=== PATIENT | male | born 1995 | race Caucasian/White ===

== ENCOUNTER 2019-09-10 12:26 | Emergency (ER) | payer SELFPAY ==
[2019-09-10 12:30] VITALS: BP 142/72; PULSE 89; RESP 18; TEMP 36.6; O2SAT 99; BMI 26.6
[2019-09-10 12:39] VITALS: BP 142/72; PULSE 89; RESP 18; TEMP 36.6; O2SAT 99
== END 2019-09-10 12:42 | disposition home or self-care (01) ==
LOC: UTC 12:41
PROVIDERS: Emergency Provider Nurse Practitioner
DX: S61.211D Laceration without foreign body of left index finger without damage to nail, subsequent encounter (principal)

== ENCOUNTER 2019-12-05 02:19 | Emergency (ER) | payer SELFPAY ==
[2019-12-05 02:19] VITALS: BP 126/90; BP 153/87; PULSE 100; PULSE 66; RESP 16; RESP 21; TEMP 36.7; O2SAT 100; O2SAT 99; BMI 23.1
--- NOTE | 2019-12-05 02:21 | ECG_ITS ---
APPROVED REPORT Exam: Resting ECG HR:90 bpm ECG Measurements Heart Rate 90 AXES GA 154 P 96 QRSd 100 QRS 97 QT 362 T 57 QTc 442 <Conclusion> Suspect arm lead reversal, interpretation assumes no reversal Normal sinus rhythm Right atrial enlargement Rightward axis Pulmonary disease pattern Abnormal ECG Electronically signed by : Trevon Mancilla, 12/05/2019 15:31:48
--- NOTE | 2019-12-05 02:24 | XR_ITS ---
PROCEDURE: XR CHEST 2V CLINICAL HISTORY: chest pain COMPARISON: CXR CHEST(2 VIEWS-NOT PORTABLE) from 10/22/2014 FINDINGS: The cardiomediastinal silhouette and pulmonary vascularity are within normal limits. The lungs are clear without infiltrates, suspicious nodules, or pleural effusions. Scattered calcified granulomas are present consistent with old granulomatous disease. No acute bony findings. IMPRESSION: No acute findings. Dictated by: Rad Santillan MD 12/05/2019 07:50 Electronically signed by Rad Santillan MD in [place] 12/05/2019 07:50
[2019-12-05 02:33] LABS: Microscopic, Urine URINE MICROSCOPIC (MICROSCOPIC)
[2019-12-05 02:34] LABS: Chloride 102 mmol/L (98-107); Potassium 3.3 mmoL/L (3.5-5.1); Sodium 139 mmol/L (136-145)
[2019-12-05 02:35] LABS: Appearance,Urine CLEAR (Clear); Bilirubin,Urine Negative (Negative); Blood, Urine Negative (Negative); Color,Urine YELLOW (Yellow); Glucose,Urine (UA) Negative (Negative); Ketones,Urine Negative (Negative); Leukocyte Esterase,Urine Negative (Negative); Nitrate,Urine Negative (Negative); Protein,Urine Negative (Negative); Urobilinogen,Urine 0.2 EU/dl (0.2)
[2019-12-05 02:37] LABS: Anion Gap 15.3 mEq/L (5-15); Basophils % 0.4 % (0.1-2.0); Blood Urea Nitrogen 18 mg/dl (9-20); Calcium 9.2 mg/dl (8.4-10.2); Carbon Dioxide 25 mmol/L (22.0-30.0); Creatinine Clearance Estimated 92 mL/min (50-200); Eosinophils # 0.2 K/mm3 (0.0-0.4); Eosinophils % 1.9 % (0.1-12.0); Estimated Glomerular Filt Rate 74 ml/min (>60); GFR (African American) 89 ML/MIN (>60); Glucose 99 mg/dl (74-100); Hematocrit 44.3 % (42.0-52.0); Hemoglobin 15.4 g/dL (14.1-18.0); Lymphocytes # 3.4 K/mm3 (0.7-4.5); Lymphocytes % 37.6 % (10-50); Mean Corpuscular HGB Conc 34.7 g/dL (31.8-35.4); Mean Corpuscular Hemoglobin 30.6 pg (27.0-31.2); Mean Corpuscular Volume 88.1 fl (80-94); Mean Platelet Volume 9.5 fl (7.4-10.4); Monocytes # 0.6 K/mm3 (0.1-1.0); Monocytes % 6.7 % (1.7-9.3); Neutrophils # 4.8 K/mm3 (1.8-7.8); Neutrophils % 53.3 % (37.0-80.0); Platelet Count 223 K/mm3 (142-424); Red Blood Count 5.04 M/mm3 (4.60-6.20); Red Cell Distribution Width 13.3 % (11.5-17.5)
[2019-12-05 02:44] LABS: Bacteria,Urine Trace /lpf; WBC,Urine Occasional #/hpf (0-3)
[2019-12-05 02:47] LABS: Amphetamine/Metha Screen,Urine Negative ng/ml (<1000); Barbiturates Screen,Urine Negative ng/ml (<200)
[2019-12-05 02:48] LABS: Benzodiazepines Screen,Urine Negative ng/ml (<200)
[2019-12-05 02:49] LABS: Cannabinoid Screen,Urine Negative ng/ml (<50); Cocaine Screen,Urine Negative ng/ml (<300)
[2019-12-05 02:50] LABS: Methadone Screen,Urine Negative ng/ml (<300)
[2019-12-05 02:51] LABS: Opiate Screen,Urine Negative ng/ml (<300); Phencyclidine Screen,Urine Negative ng/ml (<25)
[2019-12-05 02:51] LABS: Troponin I < 0.01 ng/ml (0.00-0.034)
[2019-12-05 03:13] LABS: C-Reactive Protein 0.3 mg/L (0-4)
[2019-12-05 03:19] VITALS: BP 110/68; PULSE 57; RESP 16; O2SAT 99
[2019-12-05 03:24] LABS: Coronavirus 19 IgG Antibody Negative (Negative); Coronavirus 19 IgM Antibody Negative (Negative); Erythrocyte Sedimentation Rate 10 mm/hr (0-15)
[2019-12-05 03:30] VITALS: BP 110/68; PULSE 64; RESP 17; O2SAT 97
--- NOTE | 2019-12-05 03:31 | PC.NURSE ---
this nurse reassessed pt chest pain. pt deneis any pain at this time.
--- NOTE | 2019-12-05 03:39 | HMH.EDCP ---
ED Disposition Clinical Impression: Atypical chest pain Disposition: Home, Self-Care Condition on Discharge: Good Instructions: DI for Atypical Chest Pain Additional Instructions: see pcp and card for ana cristinaxiomara dulce Referrals: PCP,No [Primary Care Provider] - - Critical Care Critical Care Time: No Attestation: On 12/05/19, the high probability of a clinically significant, sudden or life threatening deterioration of the following system(s) required my full and direct attention, intervention and personal management. The time I documented below is in addition to time spent performing reported procedures but includes the following listed in this critical care notation. Medical Decision Making - Medical Records Medical records reviewed: Yes: I reviewed the patient's medical records. - Kavon Inquiry Pt receiving controlled substance: No Vital Signs: 12/05/19 02:19 12/05/19 03:19 Temperature 98.1 F Temperature Source Oral Pulse Rate [Right Brachial] 66 57 L Respiratory Rate 16 16 Blood Pressure [Right Arm] 126/90 110/68 Blood Pressure Mean [Right Arm] 102 82 Blood Pressure Source [Right Arm] Automatic Cuff Automatic Cuff Blood Pressure Position [Right Arm] Sitting Sitting 02 Sat by Pulse Oximetry 99 99 Oxygen Delivery Method Room Air Room Air - Lab Data Lab results reviewed: Yes: I reviewed the patient's lab results. Lab Results 12/05/19 02:20: WBC 9.0, RBC 5.04, Hgb 15.4, Hct 44.3, MCV 88.1, MCH 30.6, MCHC 34.7, RDW 13.3, Plt Count 223, MPV 9.5, Neut % (Auto) 53.3, Lymph % (Auto) 37.6, [place] % (Auto) 6.7, Eos % (Auto) 1.9, Baso % (Auto) 0.4, Neut # (Auto) 4.8, Lymph # (Auto) 3.4, [place] # (Auto) 0.6, Eos # (Auto) 0.2, Baso # (Auto) 0.0 12/05/19 02:20: Sodium 139, Potassium 3.3 L, Chloride 102, Carbon Dioxide 25, Anion Gap 15.3 H, BUN 18, Creatinine 1.20, Estimated Creat Clear 92, Estimated GFR 74, Est GFR ( Amer) 89, Glucose 99, Calcium 9.2, Troponin I < 0.01 12/05/19 02:20: ESR 10 12/05/19 02:20: C-Reactive Protein 0.3 12/05/19 02:20: SARS-CoV-2 IgG Ab (Rapid) Negative, SARS-CoV-2 IgM Ab (Rapid) Negative 12/05/19 02:25: Urine Color Yellow, Urine Appearance Clear, Urine pH 7.0, Ur Specific [place] 1.020, Urine Protein Negative, Urine Glucose (UA) Negative, Urine Ketones Negative, Urine Blood Negative, Urine Nitrate Negative, Urine Bilirubin Negative, Urine Urobilinogen 0.2, Ur Leukocyte Esterase Negative, Urine WBC Occasional, Urine Bacteria Trace 12/05/19 02:25: Urine Opiates Screen Negative, Urine Methadone Screen Negative, Ur Barbituates Screen Negative, Ur Phencyclidine Scrn Negative, Ur Amphetamines Screen Negative, U Benzodiazepines Scrn Negative, Urine Cocaine Screen Negative, U Marijuana (THC) Screen Negative Result diagrams: 12/05/19 02:20 12/05/19 02:20 Orders (Tests/Meds): ED MEDICATIONS Generic Name Dose Route Start Last Admin Trade Name Freq PRN Reason Stop Dose Admin Sodium Chloride 1,000 mls @ 999 mls/hr 12/05/19 03:30 12/05/19 03:31 Sod Chlor 0.9% 1000ml Bag IV 12/05/19 04:30 999 mls/hr .Q1H1M KAYLEE Administration ORDERS Category Date Time Status XR chest 2V Stat Exams 12/05/19 02:24 Taken Troponin I Q3H Lab 12/05/19 05:30 Ordered Troponin I Q3H Lab 12/05/19 08:30 Ordered - ECG Data Tracing #1 Normal Sinus Rhythm: Yes Ischemic changes: non-specific ST-T wave changes Chest Pain HPI - General Chief Complaint: Chest Pain Stated Complaint: chest pain Time Seen by Provider: 12/05/19 02:35 Mode of Arrival: Family Vehicle Source of Information: Patient, Medical Record Limitations: No Limitations Description of Symptoms (Recalled from ER Triage Doc. by RN): chest discomfort for the past 2 days; pt is alert, oriented, no previous history, very anxious, bilateral hands tingly, states he woke up from being asleep for approx 1 hour; - History of Present Illness HPI narrative: sharp lower ant chest pain assoc with inc hr over the last few days with no f
[2019-12-05 04:00] VITALS: BP 119/73; PULSE 60; RESP 18; O2SAT 97
[2019-12-05 04:07] VITALS: BP 119/73; PULSE 61; RESP 15; TEMP 36.6; O2SAT 98
== END 2019-12-05 04:09 | disposition home or self-care (01) ==
PROVIDERS: Emergency Provider Emergency Medicine
DX: R07.89 Other chest pain (principal)
CPT/HCPCS: 71046; 80048; 80305; 81001; 84484; 85025; 85651; 86140; 86328; 93005; 96365; 99284

== ENCOUNTER 2019-12-20 00:15 | Emergency (ER) | payer SELFPAY ==
--- NOTE | 2019-12-20 00:15 | ECG_ITS ---
APPROVED REPORT Exam: Resting ECG HR:63 bpm ECG Measurements Heart Rate 63 AXES MT 150 P 72 QRSd 94 QRS 93 QT 394 T 73 QTc 403 <Conclusion> Sinus rhythm with marked sinus arrhythmia Rightward axis Borderline ECG Electronically signed by : Kamran Shine, 12/24/2019 21:22:07
[2019-12-20 00:20] VITALS: BP 129/81; PULSE 64; RESP 16; TEMP 37; O2SAT 98; BMI 22.6
--- NOTE | 2019-12-20 00:26 | HMH.EDGENADL ---
ED Disposition Clinical Impression: Atypical chest pain, Palpitations Disposition: Home, Self-Care Condition on Discharge: Good Instructions: DI for Atypical Chest Pain, DI for Palpitations Additional Instructions: Follow-up in the office with Dr. Jamil. Call for appointment. Additional instructions for CHEST PAIN: See your physician as soon as possible for further evaluation. Return immediately if worsening chest pain, vomiting, shortness of breath, fever, coughing of blood. Referrals: Provider,MD Xander [Primary Care Provider] - Ran Jamil MD [Staff Physician] - - Critical Care Critical Care Time: No Attestation: On , the high probability of a clinically significant, sudden or life threatening deterioration of the following system(s) required my full and direct attention, intervention and personal management. The time I documented below is in addition to time spent performing reported procedures but includes the following listed in this critical care notation. Medical Decision Making - Kavon Inquiry Pt receiving controlled substance: No Vital Signs: 12/20/19 00:20 12/20/19 00:28 12/20/19 00:59 Temperature 98.6 F Temperature Source Oral Pulse Rate [Left Radial] 64 65 66 Respiratory Rate 16 18 18 Blood Pressure [Right Arm] 129/81 124/65 134/64 Blood Pressure Mean [Right Arm] 97 84 87 Blood Pressure Source [Right Arm] Automatic Cuff Blood Pressure Position [Right Arm] Sitting 02 Sat by Pulse Oximetry 98 97 96 Oxygen Delivery Method Room Air Room Air - Lab Data Lab Results 12/20/19 00:30: WBC 5.5, RBC 4.77, Hgb 14.7, Hct 41.3 L, MCV 86.5, MCH 30.9, MCHC 35.7 H, RDW 13.0, Plt Count 230, MPV 9.2, Neut % (Auto) 46.1, Lymph % (Auto) 43.5, [place] % (Auto) 7.0, Eos % (Auto) 2.7, Baso % (Auto) 0.6, Neut # (Auto) 2.6, Lymph # (Auto) 2.4, [place] # (Auto) 0.4, Eos # (Auto) 0.2, Baso # (Auto) 0.0 12/20/19 00:30: Sodium 137, Potassium 3.3 L, Chloride 100, Carbon Dioxide 26, Anion Gap 14.3, BUN 26 H, Creatinine 1.10, Estimated Creat Clear 98, Estimated GFR 82, Est GFR ( Amer) 99, Glucose 90, Calcium 9.5, Troponin I < 0.01 Result diagrams: 12/20/19 00:30 12/20/19 00:30 Orders (Tests/Meds): ORDERS Category Date Time Status XR chest 2V Stat Exams 12/20/19 00:27 Taken Thyroid Panel Stat Lab 12/20/19 00:30 Received Troponin I Q3H Lab 12/20/19 03:30 Ordered Troponin I Q3H Lab 12/20/19 06:30 Ordered - ECG Data Tracing #1 EKG interpreted by Bruce Del Castillo MD: Rhythm: sinus with sinus arrhythmia Rate: 63 [place]: Rightward Ectopy: none Conduction: normal ST Segment Changes: none T Wave Changes: none Q Waves: none No evidence of acute ischemia or injury - Reevaluation(s) Time: 01:31 Reevaluation #1: Feeling good. No difficulty breathing. Feels like his heart is beating a little fast, but it is currently in the 70s. No arrhythmias. - VAN Score for Non-Stemi Age of Patient: <30 years old Heart Rate: 50-69 bpm Systolic Blood Pressure: 120-139 mmhg Serum Creatinine: 0.80-1.19 mg/dl CHF [place] Class: I-No CHF Other Risk Factors: None Non-Stemi Risk Score: 44 Medical Decision Narrative: PULMONARY EMBOLISM RULE-OUT CRITERIA: 1. Age > 49? No 2. Pulse greater than 99/min? No 3. Room air pulse ox <95%? No 4. Hemoptysis? No 5. On estrogen? No 6. Prior diagnosis of DVT or PE? No 7. Surgery or trauma requiring endotracheal intubation or hospitalization in past 4 wks? No 8. Unilateral leg swelling? No The patient is low risk and the PERC score is 0, indicating no further workup for pulmonary embolism is necessary. General Adult HPI - General Chief complaint: Chest Pain Stated complaint: chest pain Time Seen by Provider: 12/20/19 00:45 - History of Present Illness HPI narrative: Patient states that he was awakened from sleep by his heart racing and fluttering and a sharp chest pain. States that he is also been having difficulty b
--- NOTE | 2019-12-20 00:27 | XR_ITS ---
PROCEDURE: XR CHEST 2V CLINICAL HISTORY: chest pain COMPARISON: XR CHEST 2V from 12/05/2019 FINDINGS: Or or unremarkable cardiovascular structures. There is evidence of old granulomatous disease. No lobar consolidation or collapse. The lungs are clear without infiltrates, suspicious nodules, or pleural effusions. No acute bony abnormalities. IMPRESSION: No acute findings. Dictated by: Rad Santillan MD 12/20/2019 06:51 Electronically signed by Rad Santillan MD in [place] 12/20/2019 06:51
[2019-12-20 00:28] VITALS: BP 124/65; PULSE 65; RESP 18; O2SAT 97
[2019-12-20 00:42] LABS: Basophils % 0.6 % (0.1-2.0); Eosinophils # 0.2 K/mm3 (0.0-0.4); Eosinophils % 2.7 % (0.1-12.0); Hematocrit 41.3 % (42.0-52.0); Hemoglobin 14.7 g/dL (14.1-18.0); Lymphocytes # 2.4 K/mm3 (0.7-4.5); Lymphocytes % 43.5 % (10-50); Mean Corpuscular HGB Conc 35.7 g/dL (31.8-35.4); Mean Corpuscular Hemoglobin 30.9 pg (27.0-31.2); Mean Corpuscular Volume 86.5 fl (80-94); Mean Platelet Volume 9.2 fl (7.4-10.4); Monocytes # 0.4 K/mm3 (0.1-1.0); Neutrophils # 2.6 K/mm3 (1.8-7.8); Neutrophils % 46.1 % (37.0-80.0); Platelet Count 230 K/mm3 (142-424); Red Blood Count 4.77 M/mm3 (4.60-6.20); White Blood Count 5.5 K/mm3 (4.8-10.8)
[2019-12-20 00:47] LABS: Anion Gap 14.3 mEq/L (5-15); Blood Urea Nitrogen 26 mg/dl (9-20); Calcium 9.5 mg/dl (8.4-10.2); Carbon Dioxide 26 mmol/L (22.0-30.0); Chloride 100 mmol/L (98-107); Creatinine Clearance Estimated 98 mL/min (50-200); Estimated Glomerular Filt Rate 82 ml/min (>60); GFR (African American) 99 ML/MIN (>60); Glucose 90 mg/dl (74-100); Potassium 3.3 mmoL/L (3.5-5.1); Sodium 137 mmol/L (136-145)
[2019-12-20 00:59] VITALS: BP 134/64; PULSE 66; RESP 18; O2SAT 96
--- NOTE | 2019-12-20 01:01 | PC.NURSE ---
respiratory contacted to put pt on the list for a 48 hours holter monitor
[2019-12-20 01:03] LABS: Troponin I < 0.01 ng/ml (0.00-0.034)
[2019-12-20 01:20] VITALS: BP 128/58; PULSE 66; RESP 16; O2SAT 99
[2019-12-20 01:27] LABS: Free Thyroxine Index 2.8 ug/dL (5.93-13.13); T4 (Thyroxine) 8.1 ug/dl (5.53-11.0); Triiodothryronine (T3) Uptake 35 % (23.5-40.5)
[2019-12-20 01:41] VITALS: BP 114/64; PULSE 60; RESP 17; O2SAT 97
[2019-12-20 01:41] LABS: Thyroid Stimulating Hormone 2.74 uIU/mL (0.465-4.68)
[2019-12-20 02:09] VITALS: BP 118/68; PULSE 57; RESP 12; TEMP 37; O2SAT 97
== END 2019-12-20 02:11 | disposition home or self-care (01) ==
PROVIDERS: Emergency Provider Emergency Medicine
DX: R07.89 Other chest pain (principal); R00.2 Palpitations
CPT/HCPCS: 71046; 80048; 84436; 84443; 84479; 84484; 85025; 93005; 99284

== ENCOUNTER → 2019-12-22 16:15 | Outpatient (CLI) | payer SELFPAY | PROVIDERS: PCP Internal Medicine Adolescent Medicine; Visit Provider Internal Medicine Adolescent Medicine | DX: R06.02 Shortness of breath (principal); R07.9 Chest pain, unspecified; R00.2 Palpitations | CPT/HCPCS: 93225; 93226 ==

== ENCOUNTER → 2020-01-08 12:09 | Outpatient (CLI) | payer MEDICAID, SELFPAY ==
[2020-01-08 12:40] LABS: Basophils % 0.6 % (0.1-2.0); Eosinophils # 0.1 K/mm3 (0.0-0.4); Eosinophils % 2.2 % (0.1-12.0); Hematocrit 44.7 % (42.0-52.0); Hemoglobin 15.4 g/dL (14.1-18.0); Lymphocytes # 1.5 K/mm3 (0.7-4.5); Lymphocytes % 30.1 % (10-50); Mean Corpuscular HGB Conc 34.5 g/dL (31.8-35.4); Mean Corpuscular Hemoglobin 30.5 pg (27.0-31.2); Mean Corpuscular Volume 88.3 fl (80-94); Mean Platelet Volume 9.1 fl (7.4-10.4); Monocytes # 0.3 K/mm3 (0.1-1.0); Monocytes % 5.1 % (1.7-9.3); Platelet Count 220 K/mm3 (142-424); Red Blood Count 5.07 M/mm3 (4.60-6.20); Red Cell Distribution Width 12.7 % (11.5-17.5); White Blood Count 4.8 K/mm3 (4.8-10.8)
[2020-01-08 13:12] LABS: Chloride 102 mmol/L (98-107); Potassium 4.2 mmoL/L (3.5-5.1); Sodium 140 mmol/L (136-145)
[2020-01-08 13:14] LABS: Blood Urea Nitrogen 13 mg/dl (9-20); Estimated Glomerular Filt Rate 91 ml/min (>60); GFR (African American) 110 ML/MIN (>60)
[2020-01-08 13:15] LABS: Alanine Aminotransferase 32 U/L (12-78); Albumin Level 4.5 g/dl (3.5-5.0); Albumin/Globulin Ratio 1.7 (1.1-1.8); Alkaline Phosphatase 71 U/L (38-126); Anion Gap 12.2 mEq/L (5-15); Aspartate Amino Transferase 26 U/L (17-59); Bilirubin,Total 0.7 mg/dl (0.2-1.3); Calcium 9.5 mg/dl (8.4-10.2); Carbon Dioxide 30 mmol/L (22.0-30.0); Cholesterol 147 mg/dl (140-200); Globulin 2.7 g/dL (1.3-3.2); Glucose 90 mg/dl (74-100); Total Protein,Serum 7.2 g/dl (6.3-8.2); Triglycerides 47 mg/dl (30-150); VLDL Cholesterol 9 mg/dL (0-40)
[2020-01-08 13:16] LABS: Chol/HDL Ratio 2.8 (1-3.5); HDL Cholesterol 53 mg/dl (40-60); Magnesium 2.1 mg/dl (1.6-2.3)
[2020-01-08 13:26] LABS: Direct LDL Cholesterol 84.26 mg/dL (100-129)
== END ==
PROVIDERS: Visit Provider Internal Medicine Adolescent Medicine
DX: I47.1 Supraventricular tachycardia (principal); K92.1 Melena
CPT/HCPCS: 36415; 80053; 80061; 83735; 85025

== ENCOUNTER → 2020-01-12 15:20 | Outpatient (CLI) | payer MEDICAID, SELFPAY ==
--- NOTE | 2020-01-12 15:26 | CA_ITS ---
APPROVED REPORT EXAM: Comprehensive 2D, Doppler, and color-flow Echocardiogram Manager Of Digital: Zenobia Martinez RDCS Ht: 5 ft 8 in Wt: 148lbs BSA: 1.80 BP: 117/57 mmHg Indications: CP SVT PALPS LAMB 2D Dimensions LVOT 1.92 cm (M/F) 1.5-2.5 M-Mode Dimensions RVDd 2.17 cm (0.9-2.6) LVDd 4.98 cm (3.5-5.7) LVDs 3.71 cm (3.5-5.7) IVSd 0.59 cm (0.6-1.1) PWd 0.77 cm (0.6-1.1) EF (Teich) 50.00% FS 25.50% EDV (Teich) 117.10 mL ESV (Teich) 58.50 mL LV Diastology E/A Ratio 1.14 Mitral Valve MV A Velocity 110.00 (40-130 cm/s) Left Ventricle Left atrium is normal size, left ventricle is normal size, there is no concentric left ventricular hypertrophy, visually estimated ejection fraction 55% with no regional wall motion abnormality. Diastolic parameters are within normal range. Right Ventricle Right atrium and right ventricular normal size and contractility. Aortic Valve Aortic valve is grossly normal, there is no aortic stenosis or aortic insufficiency. Mitral Valve Mitral valve is grossly normal, there is trace mitral regurgitation. Tricuspid Valve Tricuspid valve grossly normal, there is trace tricuspid regurgitation, calculated right ventricular systolic pressure is 28 mmHg. Pulmonic Valve Pulmonic valve is poorly visualized. Great Vessels Aortic root is normal size. Pericardium No significant pericardial effusion noted. Conclusion 1. Normal left ventricular size, preserved left ventricular systolic function, visually estimated ejection fraction 55% with no regional wall motion abnormality, diastolic parameters are within normal range. 2. Trace mitral and tricuspid regurgitation, calculated right ventricular systolic pressure within normal range. 3. No significant pericardial effusion noted. Electronically signed by : Efrem Aleman, 01/14/2020 17:29:47
== END ==
PROVIDERS: PCP Internal Medicine Adolescent Medicine; Visit Provider Physician Assistant
DX: R07.89 Other chest pain (principal); R06.00 Dyspnea, unspecified; R00.2 Palpitations; Z82.49 Family history of ischemic heart disease and other diseases of the circulatory system
CPT/HCPCS: 93306

== ENCOUNTER → 2020-01-31 12:43 | Outpatient (CLI) | payer MEDICAID, SELFPAY | PROVIDERS: Visit Provider Nurse Practitioner Family | DX: R07.9 Chest pain, unspecified (principal); R06.02 Shortness of breath ==

== ENCOUNTER → 2020-02-13 06:40 | Outpatient (CLI) | payer MEDICAID, SELFPAY ==
[2020-02-13 08:00] VITALS: BP 111/80; PULSE 50; RESP 18; O2SAT 99
--- NOTE | 2020-02-13 08:04 | CT_ITS ---
PROCEDURE: CT ANGIO CORONARY ARTERY CLINCAL INDICATION: dyspnea, chest pain Family hx COMPARISON: No exams were available for comparison TECHNIQUE: IV Contrast: 135 mL Optiray 350. The patient's heart rate was consistently below 60 therefore, no medication was required for bradycardia. Gated axial images are obtained following bolus administration of contrast with multiplanar and curved planar reformats. Axial images obtained with sagittal and coronal reformats. All CT scans at the facility use one or more dose reduction, viz: automated exposure control, ma/kV adjustment per patient size (including targeted exams where dose is matched to indication, i.e. head), or iterative reconstruction technique. FINDINGS: The coronary arteries originate from the aorta in the expected location. No evidence anomalous coronary artery course. The left main, lad, and circumflex as well as diagonals and marginal branches have an unremarkable appearance. Appear to be some minor myocardial bridging involving the marginal branch of the circumflex. This is of questionable clinical significance. There is no evidence of myocardial bridging of major coronary vessels. No significant stenotic lesions are apparent. There is cold dominant supply to the inferior wall. 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 Incidental note is made old granulomatous disease.. There is an additional nominal S vessel in the left upper quadrant medially which is incompletely imaged within the abdomen medial to the spleen and the cardia of the stomach. Gynecomastia is noted. IMPRESSION: 1. No evidence of anomalous coronary arteries with no stenotic or obstructive lesions evident. 2. Minimal myocardial bridging of the obtuse marginal branch of the circumflex which is of questionable clinical significance 3. 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 Dictated by: Rad Santillan MD 02/14/2020 09:25 Rad Santillan MD in [place] 02/14/2020 09:25
== END ==
PROVIDERS: PCP Internal Medicine Adolescent Medicine; Visit Provider Internal Medicine
DX: R00.2 Palpitations (principal); R06.00 Dyspnea, unspecified; R07.89 Other chest pain; Z82.49 Family history of ischemic heart disease and other diseases of the circulatory system
CPT/HCPCS: 75574; Q9967

== ENCOUNTER 2020-03-12 22:23 | Emergency (ER) | payer MEDICAID, SELFPAY ==
[2020-03-12 22:24] VITALS: BP 113/70; PULSE 67; RESP 16; TEMP 36.8; O2SAT 98; BMI 22.0
--- NOTE | 2020-03-12 22:53 | XR_ITS ---
PROCEDURE: XR CHEST 2V CLINICAL HISTORY: cp/soa COMPARISON: CR CXR CHEST(2 VIEWS-NOT PORTABLE) from 10/22/2014 CR XR CHEST 2V from 12/05/2019 CR XR CHEST 2V from 12/20/2019 FINDINGS: The cardiomediastinal silhouette and pulmonary vascularity are within normal limits. The lungs are clear without infiltrates, suspicious nodules, or pleural effusions. Calcified granulomas are noted on the right and in the anterior clear space IMPRESSION: No acute findings. Dictated by: Rad Santillan MD 03/13/2020 05:28 Rad Santillan MD in [place] 03/13/2020 05:28
--- NOTE | 2020-03-12 22:53 | ECG_ITS ---
APPROVED REPORT Exam: Resting ECG HR:62 bpm ECG Measurements Heart Rate 62 AXES NM 154 P 67 QRSd 110 QRS 92 QT 384 T 63 QTc 389 Conclusion Normal sinus rhythm Rightward axis Borderline ECG Electronically signed by : Trevon Mancilla, 03/25/2020 16:33:44
[2020-03-12 23:00] LABS: Hematocrit 46.8 % (42.0-52.0); Hemoglobin 15.8 g/dL (14.1-18.0); Red Blood Count 5.39 M/mm3 (4.60-6.20); White Blood Count 5.7 K/mm3 (4.8-10.8)
[2020-03-12 23:01] LABS: Basophils % 0.6 % (0.1-2.0); Eosinophils # 0.2 K/mm3 (0.0-0.4); Eosinophils % 2.7 % (0.1-12.0); Lymphocytes # 2.5 K/mm3 (0.7-4.5); Lymphocytes % 44.2 % (10-50); Mean Corpuscular HGB Conc 33.8 g/dL (31.8-35.4); Mean Corpuscular Hemoglobin 29.3 pg (27.0-31.2); Mean Corpuscular Volume 86.8 fl (80-94); Mean Platelet Volume 9.4 fl (7.4-10.4); Monocytes # 0.5 K/mm3 (0.1-1.0); Monocytes % 8.8 % (1.7-9.3); Neutrophils # 2.5 K/mm3 (1.8-7.8); Neutrophils % 43.6 % (37.0-80.0); Platelet Count 217 K/mm3 (142-424); Red Cell Distribution Width 13.1 % (11.5-17.5)
[2020-03-12 23:02] LABS: Chloride 102 mmol/L (98-107); Sodium 140 mmol/L (136-145)
[2020-03-12 23:05] LABS: Anion Gap 12.4 mEq/L (5-15); Blood Urea Nitrogen 20 mg/dl (9-20); Calcium 9.3 mg/dl (8.4-10.2); Carbon Dioxide 29 mmol/L (22.0-30.0); Creatinine Clearance Estimated 104 mL/min (50-200); Estimated Glomerular Filt Rate 90 ml/min (>60); GFR (African American) 109 ML/MIN (>60); Glucose 96 mg/dl (74-100); Potassium 3.4 mmoL/L (3.5-5.1)
[2020-03-12 23:18] LABS: Troponin I < 0.01 ng/ml (0.00-0.034)
[2020-03-12 23:23] VITALS: BP 114/55; PULSE 57; RESP 18; O2SAT 98
[2020-03-12 23:43] LABS: Strep Scrn Group A (Rapid) Negative (Negative)
[2020-03-13 00:38] VITALS: BP 114/59; PULSE 58; O2SAT 100
[2020-03-13 01:13] VITALS: BP 110/60; PULSE 60; RESP 18; O2SAT 97
--- NOTE | 2020-03-13 01:15 | HMH.EDCP ---
ED Disposition Clinical Impression: Atypical chest pain Disposition: Home, Self-Care Condition on Discharge: Good Instructions: DI for Atypical Chest Pain Additional Instructions: call pcp and card for follow up Referrals: PCP,No [Primary Care Provider] - - Critical Care Critical Care Time: No Attestation: On 03/12/20, the high probability of a clinically significant, sudden or life threatening deterioration of the following system(s) required my full and direct attention, intervention and personal management. The time I documented below is in addition to time spent performing reported procedures but includes the following listed in this critical care notation. Medical Decision Making - Medical Records Medical records reviewed: Yes: I reviewed the patient's medical records. - Kavon Inquiry Pt receiving controlled substance: No Vital Signs: 03/12/20 22:24 03/12/20 23:23 03/13/20 00:38 Temperature 98.2 F Temperature Source Oral Pulse Rate [Left Radial] 67 57 L 58 L Respiratory Rate 16 18 Blood Pressure [Right Arm] 113/70 114/55 L 114/59 L Blood Pressure Mean [Right Arm] 84 74 77 Blood Pressure Source [Right Arm] Automatic Cuff Automatic Cuff Blood Pressure Position [Right Arm] Sitting Sitting 02 Sat by Pulse Oximetry 98 98 100 Oxygen Delivery Method Room Air Room Air Room Air 03/13/20 01:13 Temperature Temperature Source Pulse Rate [Left Radial] 60 Respiratory Rate 18 Blood Pressure [Right Arm] 110/60 Blood Pressure Mean [Right Arm] 76 Blood Pressure Source [Right Arm] Blood Pressure Position [Right Arm] 02 Sat by Pulse Oximetry 97 Oxygen Delivery Method Room Air - Lab Data Lab results reviewed: Yes: I reviewed the patient's lab results. Lab Results 03/12/20 22:43: WBC 5.7, RBC 5.39, Hgb 15.8, Hct 46.8, MCV 86.8, MCH 29.3, MCHC 33.8, RDW 13.1, Plt Count 217, MPV 9.4, Neut % (Auto) 43.6, Lymph % (Auto) 44.2, [place] % (Auto) 8.8, Eos % (Auto) 2.7, Baso % (Auto) 0.6, Neut # (Auto) 2.5, Lymph # (Auto) 2.5, [place] # (Auto) 0.5, Eos # (Auto) 0.2, Baso # (Auto) 0.0 03/12/20 22:43: Sodium 140, Potassium 3.4 L, Chloride 102, Carbon Dioxide 29, Anion Gap 12.4, BUN 20, Creatinine 1.00, Estimated Creat Clear 104, Estimated GFR 90, Est GFR ( Amer) 109, Glucose 96, Calcium 9.3, Troponin I < 0.01 03/12/20 23:10: Influenza Type A Ag Negative, Influenza Type B Ag Negative 03/12/20 23:10: Group A Strep Rapid Negative Result diagrams: 03/12/20 22:43 03/12/20 22:43 Orders (Tests/Meds): ED MEDICATIONS Generic Name Dose Route Start Last Admin Trade Name Freq PRN Reason Stop Dose Admin Sodium Chloride 1,000 mls @ 999 mls/hr 03/12/20 23:15 03/12/20 23:15 Sod Chlor 0.9% 1000ml Bag IV 03/13/20 00:15 999 mls/hr .Q1H1M KAYLEE Administration ORDERS Category Date Time Status XR chest 2V Stat Exams 03/12/20 22:53 Taken Troponin I Q3H Lab 03/13/20 02:00 Ordered Troponin I Q3H Lab 03/13/20 05:00 Ordered Strep Screen Confirmation Stat Micro 03/12/20 23:10 Received - Radiology Data #1 Image(s): Chest Image Reviewed: Yes I reviewed the patient's radiology image Preliminary Findings: Normal/NAD - ECG Data Tracing #1 Normal Sinus Rhythm: Yes Ischemic changes: non-specific ST-T wave changes Chest Pain HPI - General Chief Complaint: Upper Respiratory Infection Stated Complaint: sore throat, Time Seen by Provider: 03/13/20 00:00 Mode of Arrival: Ambulatory Source of Information: Patient, Medical Record Limitations: No Limitations Description of Symptoms (Recalled from ER Triage Doc. by RN): Pt c/o sore throat for past 2 days is reason for visiting ED tonight. Pt then later mentions he had an epsiode of CP and SOA around 10pm described as a tightness and heart racing in his chest. Pt reports having similar symptoms in the past and was seen by cardiology, but he does not recall a diagnosis. Pt denies any current CP or SOA. - History of Present Illnes
[2020-03-13 01:30] VITALS: BP 112/61; PULSE 62; RESP 16; TEMP 36.7; O2SAT 98
== END 2020-03-13 01:26 | disposition home or self-care (01) ==
PROVIDERS: Emergency Provider Emergency Medicine
DX: R07.89 Other chest pain (principal); E87.6 Hypokalemia
CPT/HCPCS: 71046; 80048; 84484; 85025; 87275; 87276; 87430; 93005; 96365; 99284

== ENCOUNTER 2020-03-21 14:37 | Emergency (ER) | payer MEDICAID, SELFPAY ==
[2020-03-21 15:00] VITALS: BP 114/79; PULSE 73; RESP 14; TEMP 36.7; O2SAT 97; BMI 22.0
--- NOTE | 2020-03-21 15:29 | HMH.EDUTC ---
[facility] [place] Disposition Clinical Impression: Exposure to COVID-19 virus Disposition: Home, Self-Care Condition on Discharge: Good Instructions: Preventing the Spread of Coronavirus Discharge Instructions Additional Instructions: Drink plenty of fluids. Take tylenol for pain or fever. Follow up with your regular doctor. GO TO THE ER FOR ANY WORSENING SYMPTOMS Referrals: PCP,No [Primary Care Provider] - Forms: Work/School Release Time of Disposition: 15:50 Medical Decision Making - Medical Records Medical records reviewed: No: I reviewed the patient's medical records. - Kavon Inquiry Pt receiving controlled substance: No Vital Signs: 03/21/20 15:00 03/21/20 15:52 Temperature 98.0 F 98.0 F Temperature Source Oral Pulse Rate 73 Pulse Rate [Right Brachial] 73 Respiratory Rate 14 14 Blood Pressure 114/79 Blood Pressure [Right Arm] 114/79 Blood Pressure Mean [Right Arm] 90 Blood Pressure Source [Right Arm] Automatic Cuff Blood Pressure Position [Right Arm] Sitting 02 Sat by Pulse Oximetry 97 Oxygen Delivery Method Room Air [facility] [place] HPI - General Stated complaint: Covid test Time Seen by Provider: 03/21/20 15:29 Mode of Arrival: Ambulatory Source of Information: Patient Limitations: No Limitations Description of Symptoms (Recalled from Triage Doc. by RN): PATIENT REQUESTING COVID TEST HEENT Symptoms (Recalled from RN notes): No Resp Symptoms (Recalled from RN notes): No Skin Symptoms (Recalled from RN notes): No MS Symptoms (Recalled from RN notes): No Functional Status (Recalled from RN notes): WNL - History of Present Illness Provider Complaint: He denies any symptoms. He states that his was around someone with covid, but he has not had a direct exposure as far as he knows. - Related Data Home Medications Medication Instructions Recorded Confirmed No Known Home Medications 03/12/20 03/12/20 Allergies Allergy/AdvReac Type Severity Reaction Status Date / Time No Known Allergies Allergy Verified 02/22/20 14:58 - Worker's Comp Is this a Worker's Comp case?: No [facility] History - Hepatitis A Screen Drug use history?: No High risk sexual behaviors?: No History of sexually transmitted infection?: No Currently employed?: No Childcare worker?: No Do you have indoor plumbing?: Yes Do you have electricity?: Yes Attestation statement:: This patient has been screened for Hepatitis A risk factors. I have reviewed the patient's past medical history: Yes Medical History: Reports:: Palpitations Denies:: Cancer, Diabetes Mellitus Type 1, Diabetes Mellitus Type 2, MRSA Laterality Cases: Bilateral: Myringotomy (Ear Tubes) Other Surgeries: Yes: No Previous Surgery Amputation: No Fractures: No - Social History Smoking Status: Never smoker Alcohol Intake: never Substance Use Type: denies use Occupational Status: other Housing: house Family Hx:: Coronary Artery Disease, Diabetes, Heart Attack, Hyperlipidemia, Hypertension Comment: Father- of [place]@42 ROS Obtained: Yes All systems reviewed & no additional complaints - Constitutional Constitutional: Reports system reviewed and no additional complaints, except as docu - Eyes Eyes: Reports system reviewed and no additional complaints, except as docu - ENT Ears, Nose, Mouth, and Throat: Reports system reviewed and no additional complaints, except as docu - Cardiovascular Cardiovascular: Reports system reviewed and no additional complaints, except as docu - Respiratory Respiratory: Yes system reviewed and no additional complaints, except as docu - Gastrointestinal Gastrointestingal: Reports: system reviewed and no additional complaints, except as docu Physical Exam - General General appearance: alert, in no apparent distress - Head Head exam: atraumatic, normocephalic, normal inspection - Eye Eye exam: Present: normal appearance, PERRL, EOMI - ENT ENT exam: Present: normal exam, normal oropha
[2020-03-21 15:52] VITALS: BP 114/79; PULSE 73; RESP 14; TEMP 36.7; O2SAT 97
== END 2020-03-21 15:58 | disposition home or self-care (01) ==
PROVIDERS: Emergency Provider Nurse Practitioner Family
DX: Z20.828 Contact with and (suspected) exposure to other viral communicable diseases (principal)
CPT/HCPCS: 99201; U0003

== ENCOUNTER 2020-05-13 17:19 | Emergency (ER) | payer MEDICAID, SELFPAY ==
[2020-05-13 17:44] VITALS: BP 139/76; PULSE 75; RESP 20; TEMP 36.9; O2SAT 99; BMI 22.0
[2020-05-13 18:10] VITALS: BP 139/76; PULSE 75; RESP 20; TEMP 36.9; O2SAT 99; BMI 21.9
--- NOTE | 2020-05-13 18:28 | HMH.EDUTC ---
[facility] [place] Clinical Impression: Screen for STD (sexually transmitted disease) Disposition: Home, Self-Care Condition on Discharge: Good Instructions: Informing Partners of STI Patients Reduces Ongoing and Recurrent Sexually T, Facts About Sexually Transmitted Infections Additional Instructions: Make sure to follow up with Your Family Doctor for results of your testing and further treatment if needed Return if needed Straight to ER if any life threatening symptoms Your tests was send out lab testing this can take 5-7 days for the results to be back Make sure to follow up with your Family Doctor for results and treatment Referrals: PCP,No [Primary Care Provider] - As needed Time of Disposition: 18:33 Medical Decision Making - Kavon Inquiry Pt receiving controlled substance: No Kavon was queried for this patient: No Vital Signs: 05/13/20 17:44 Temperature 98.4 F Temperature Source Oral Pulse Rate [Left Radial] 75 Respiratory Rate 20 Blood Pressure [Right Arm] 139/76 Blood Pressure Mean [Right Arm] 97 Blood Pressure Source [Right Arm] Automatic Cuff Blood Pressure Position [Right Arm] Sitting 02 Sat by Pulse Oximetry 99 Oxygen Delivery Method Room Air Orders (Tests/Meds): ORDERS Category Date Time Status HSV 1 and 2-Specific Ab, IgG Stat Lab 05/13/20 18:13 Ordered [facility] [place] - General Stated complaint: ABD PAIN Time Seen by Provider: 05/13/20 18:28 Mode of Arrival: Ambulatory Source of Information: Patient Limitations: No Limitations Description of Symptoms (Recalled from Triage Doc. by RN): Pt denies any abd pain at this time. Pt wants STD test - History of Present Illness Provider Complaint: Patient states that he is not having any pain but last night he had some clear discharge from the head of his penis States that he was worried that he may have an STD so he come in to get checked States that he has not had any exposure that he is aware of, denies pain or burning with urination and denies abdominal pain - Related Data Home Medications Medication Instructions Recorded Confirmed No Known Home Medications 03/12/20 03/12/20 Allergies Allergy/AdvReac Type Severity Reaction Status Date / Time No Known Allergies Allergy Verified 02/22/20 14:[address] [facility] History - Hepatitis A Screen Attestation statement:: This patient has been screened for Hepatitis A risk factors. I have reviewed the patient's past medical history: Yes Medical History: Reports:: Palpitations Denies:: Cancer, Diabetes Mellitus Type 1, Diabetes Mellitus Type 2, MRSA Laterality Cases: Bilateral: Myringotomy (Ear Tubes) Other Surgeries: Yes: No Previous Surgery Amputation: No Fractures: No - Social History Smoking Status: Never smoker Alcohol Intake: never Substance Use Type: denies use Occupational Status: other Housing: house Family Hx:: Coronary Artery Disease, Diabetes, Heart Attack, Hyperlipidemia, Hypertension Comment: Father- of [place]@42 ROS Obtained: Yes All systems reviewed & no additional complaints, Yes Systems reviewed as appropriate & no additional complaints - Constitutional Constitutional: Reports system reviewed and no additional complaints, except as docu, Denies body ache, Denies chills, Denies fever(s) - ENT Ears, Nose, Mouth, and Throat: Reports system reviewed and no additional complaints, except as docu - Cardiovascular Cardiovascular: Reports system reviewed and no additional complaints, except as docu - Respiratory Respiratory: Yes system reviewed and no additional complaints, except as docu - Gastrointestinal Gastrointestingal: Reports: system reviewed and no additional complaints, except as docu. Denies: abdominal pain, cramping, diarrhea, nausea, vomiting - Genitourinary Male Genitourinary: Denies difficulty urinating, Denies flank pain, Denies genital pain, Denies blood in semen, Denies hematuria, Denies painful ejaculations, Reports penile discharge (clear
[2020-05-13 18:47] VITALS: BP 139/76; PULSE 75; RESP 20; TEMP 36.9; O2SAT 99
[2020-05-16 09:10] LABS: HSV 2 IgG, Type Spec <0.91 index (0.00-0.90)
[2020-05-17 04:18] LABS: Neisseria gonorrhoeae, NAA Negative (Negative)
== END 2020-05-13 18:50 | disposition home or self-care (01) ==
LOC: ER 17:47 → UTC 17:48
PROVIDERS: Emergency Provider Nurse Practitioner
DX: Z20.2 Contact with and (suspected) exposure to infections with a predominantly sexual mode of transmission (principal)
CPT/HCPCS: 86695; 86790; 87491; 87591; 99202

== ENCOUNTER 2020-06-18 09:11 | Emergency (ER) | payer BC, OTHER, SELFPAY ==
[2020-06-18 09:15] VITALS: BP 105/67; PULSE 80; RESP 14; TEMP 36.7; O2SAT 96; BMI 22.1
--- NOTE | 2020-06-18 09:36 | HMH.EDUTC ---
[facility] – [place] Disposition Clinical Impression: Viral syndrome, Exposure to COVID-19 virus Disposition: Home, Self-Care Condition on Discharge: Good Instructions: DI for Viral Gastroenteritis -- Adult, Gastroenteritis Diet, Preventing the Spread of Coronavirus Discharge Instructions Additional Instructions: Drink plenty of fluids. Take tylenol for pain or fever. Return if you begin to have difficulty breathing Follow up with your regular doctor. GO TO THE ER FOR ANY WORSENING SYMPTOMS Take the zofran for nausea/vomiting if you continue to have those symptoms. Prescriptions: Ondansetron [Zofran 4mg ODT] 4 mg PO Q8HP PRN #12 tab.rapdis PRN Reason: Nausea Transmission Status: Received by [employer] #[id number] Referrals: Mauro Calvert MD [Primary Care Provider] - Forms: Work/School Release Time of Disposition: 09:41 Medical Decision Making - Medical Records Medical records reviewed: No: I reviewed the patient's medical records. - Kavon Inquiry Pt receiving controlled substance: No Vital Signs: 06/18/20 09:15 06/18/20 09:45 Temperature 98.0 F 98.0 F Temperature Source Oral Pulse Rate 80 Pulse Rate [Right Brachial] 80 Respiratory Rate 14 14 Blood Pressure 105/67 L Blood Pressure [Right Arm] 105/67 L Blood Pressure Mean [Right Arm] 79 Blood Pressure Source [Right Arm] Automatic Cuff Blood Pressure Position [Right Arm] Sitting 02 Sat by Pulse Oximetry 96 Oxygen Delivery Method Room Air Orders (Tests/Meds): ORDERS Category Date Time Status Covid-19 Nasal PCR Sendout P&C Routine Lab 06/18/20 09:30 Received [facility] [place] HPI - General Stated complaint: Covid Test Time Seen by Provider: 06/18/20 09:36 - History of Present Illness Provider Complaint: He states that since yesterday he has had nausea/vomiting/fever up to 100.8/and body aches. He denies any respiratory symptoms. He denies any known exposure to covid-19, but he states that he either has covid-19 or a stomach virus. - Related Data Previous Rx's Medication Instructions Recorded Ondansetron [Zofran 4mg ODT] 4 mg PO Q8HP PRN #12 tab.rapdis 01/26/21 Allergies Allergy/AdvReac Type Severity Reaction Status Date / Time No Known Allergies Allergy Verified 06/05/20 14:50 [facility] History - Hepatitis A Screen Attestation statement:: This patient has been screened for Hepatitis A risk factors. I have reviewed the patient's past medical history: Yes Medical History: Reports:: Palpitations Denies:: Cancer, Diabetes Mellitus Type 1, Diabetes Mellitus Type 2, MRSA Laterality Cases: Bilateral: Myringotomy (Ear Tubes) Other Surgeries: Yes: No Previous Surgery Amputation: No Fractures: No - Social History Smoking Status: Never smoker Alcohol Intake: never Substance Use Type: denies use Occupational Status: other Housing: house Family Hx:: Coronary Artery Disease, Diabetes, Heart Attack, Hyperlipidemia, Hypertension Comment: Father- of [place]@42 ROS Obtained: Yes All systems reviewed & no additional complaints - Constitutional Constitutional: Reports system reviewed and no additional complaints, except as docu - Eyes Eyes: Reports system reviewed and no additional complaints, except as docu - ENT Ears, Nose, Mouth, and Throat: Reports system reviewed and no additional complaints, except as docu - Cardiovascular Cardiovascular: Reports system reviewed and no additional complaints, except as docu - Respiratory Respiratory: Reports system reviewed and no additional complaints, except as docu - Gastrointestinal Gastrointestingal: Reports: system reviewed and no additional complaints, except as docu Physical Exam - General General appearance: alert, in no apparent distress - Head Head exam: atraumatic, normocephalic, normal inspection - Eye Eye exam: Present: normal appearance, PERRL, EOMI - ENT ENT exam: Present: normal exam, normal oropharynx, mucous m
[2020-06-18 09:45] VITALS: BP 105/67; PULSE 80; RESP 14; TEMP 36.7; O2SAT 96
[2020-06-19 11:02] LABS: Covid-19 Nasal PCR Sendout P&C Negative
== END 2020-06-18 09:50 | disposition home or self-care (01) ==
PROVIDERS: Emergency Provider Nurse Practitioner Family; PCP Emergency Medicine
DX: Z20.822 Contact with and (suspected) exposure to COVID-19 (principal); B34.9 Viral infection, unspecified; R00.2 Palpitations
CPT/HCPCS: 99202; G0463; U0004

== ENCOUNTER → 2020-07-02 12:30 | Outpatient (CLI) | payer BC, OTHER, SELFPAY ==
[2020-07-02 13:25] LABS: Coronavirus 19 IgG Antibody Positive (Negative); Coronavirus 19 IgM Antibody Negative (Negative)
== END ==
PROVIDERS: Visit Provider Surgery
DX: Z01.812 Encounter for preprocedural laboratory examination (principal); Z20.822 Contact with and (suspected) exposure to COVID-19; Z86.16 Personal history of COVID-19; Z13.810 Encounter for screening for upper gastrointestinal disorder; Z12.11 Encounter for screening for malignant neoplasm of colon; K21.9 Gastro-esophageal reflux disease without esophagitis; K62.5 Hemorrhage of anus and rectum
CPT/HCPCS: 36415; 86328

== ENCOUNTER 2020-07-04 06:17 | Day surgery (SDC) | payer BC, OTHER, SELFPAY ==
[2020-07-02 10:36] VITALS: BMI 22.1
[2020-07-04 06:46] VITALS: BP 123/57; PULSE 66; RESP 20; TEMP 36.6; O2SAT 100
[2020-07-04 07:23] VITALS: O2SAT 100
[2020-07-04 08:20] VITALS: BP 98/51; PULSE 73; RESP 18; TEMP 36.9; O2SAT 97
--- NOTE | 2020-07-04 08:21 | HMH.SCOPE ---
- Procedure: Date: 07/04/20 Patient Date of :: 1995 Procedure Performed:: Esophagogastroduodenoscopy with biopsy Colonoscopy with polypectomy, biopsy, and tattoo Indications:: Gastroesophageal reflux Blood per rectum Performing Provider:: Lane Carney MD Referring Provider:: Dr. Shine Sedation:: Monitored anesthesia care Procedure:: After informed consent was obtained the patient was taken to the endoscopy suite. Sedation ensued after the patient was transferred to the left lateral decubitus position. Pulse, blood pressure, and oxygen saturation were monitored throughout the procedure. The endoscope was advanced beyond the duodenal bulb. Retroflexion within the gastric lumen was accomplished. The gastroscope was carefully removed. Digital rectal exam revealed no significant abnormality. The colonoscope was placed in position. The entire colon was evaluated. The colonoscope was carefully removed and the patient was transferred to recovery in stable condition. Please see findings and specimens below for detail. Findings:: Gastroesophageal junction at 40 cm Mild gastritis Bowel preparation relatively fair Fairly severe colonic tortuosity throughout (most severe in sigmoid colon) Significant lack of relaxation Mild inflammatory changes ileocecal valve Minimal hemorrhoidal cushions Polyps (see specimens) Specimens:: Antral biopsy Focal inflammation of ileocecal valve Small hyperplastic-appearing polyp at 20 cm Large complex pedunculated polyp at 15 cm with surrounding inflammatory change (snare and tattoo) Recommendations:: Follow-up pathology with regard to antral biopsy Timing of repeat colonoscopy is pending pathology but will likely be between 3-6 months secondary to large complex pedunculated polyp at 15 cm. Close reevaluation of tattoo site warranted. Complications:: No immediate Estimated blood obtained (mL): 1
[2020-07-04 08:30] VITALS: BP 104/52; PULSE 71; RESP 18; O2SAT 100
--- NOTE | 2020-07-04 08:35 | HMH.ANESCL ---
[facility] Anesthesia Checklist - Patient Identification Patient Identification: Arm Band - Structural Data Admitted From: Home Planned Operative Procedure/s: egd/colonoscopy Consent for Planned Operative Procedure(s) Verified: Yes Verified Documents: Surgical Consent, History and Physical - NPO Status Verified Time NPO: 00:00 - Additional verifications Anesthesia Reactions: No - Airway Assessment C-Spine Mobility Assessed: Yes (mp2) TMJ Mobility Assessed: Yes Dentition: Good Dentition - Neurological Assessment Level of Consciousness: Awake, Alert - Anesthesia Plan Anesthesia Risk discussed: Yes Anesthesia Plan: Verified ASA Class: I Anesthesia Type: MAC [facility] History I have reviewed the patient's past medical history: Yes Medical History: Reports:: Palpitations Denies:: Cancer, Diabetes Mellitus Type 1, Diabetes Mellitus Type 2, Internal Pacemaker, MRSA, Seizures *Have you ever received a pneumonia vaccine?: No *Have you received a flu vaccine this season?: No Anesthesia experience/problems:: nac Laterality Cases: Bilateral: Myringotomy (Ear Tubes) Other Surgeries: No: Pacemaker Amputation: No Fractures: No - *Social History Last grade of school completed: High school graduate Smoking Status: Never smoker Alcohol Intake: never Substance Use Type: denies use *Occupational Status:: other Housing: house Household Members: family *Travel in the last 8 weeks: None Family Hx:: Coronary Artery Disease, Diabetes, Heart Attack, Hyperlipidemia, Hypertension
[2020-07-04 08:46] VITALS: BP 100/68; PULSE 71; RESP 18; O2SAT 100
[2020-07-04 08:53] VITALS: BP 120/68; PULSE 70; RESP 18; O2SAT 100
== END 2020-07-04 08:56 | disposition home or self-care (01) ==
LOC: OUTP 06:18
PROVIDERS: PCP Emergency Medicine; Visit Provider Surgery
PROC: 0DJ08ZZ Inspection of Upper Intestinal Tract, Via Natural or Artificial Opening Endoscopic (ICD-10-PCS; CPT 43235; principal; 2020-07-04 07:30)
DX: K56.2 Volvulus; K63.89 Other specified diseases of intestine; K64.9 Unspecified hemorrhoids; K63.5 Polyp of colon; R00.2 Palpitations; Z83.3 Family history of diabetes mellitus; Z82.3 Family history of stroke; Z82.49 Family history of ischemic heart disease and other diseases of the circulatory system; Z83.438 Family history of other disorder of lipoprotein metabolism and other lipidemia
CPT/HCPCS: 43239; 45380; 45381

== ENCOUNTER 2020-12-29 13:42 | Emergency (ER) | payer BC, SELFPAY ==
[2020-12-29 13:43] VITALS: BP 134/80; PULSE 90; RESP 16; TEMP 36.6; O2SAT 98; BMI 21.2
--- NOTE | 2020-12-29 13:59 | HMH.EDANX ---
ED Disposition Clinical Impression: Anxiety Disposition: Home, Self-Care Condition on Discharge: Good Additional Instructions: Avoid caffeine. Follow-up with your primary care physician to discuss the possibility of anxiety disorder. Return to the emergency department if you feel worse in any way. Referrals: Provider,Referral, [Primary Care Provider] - 7-14 days - Critical Care Critical Care Time: No Attestation: On 12/29/20, the high probability of a clinically significant, sudden or life threatening deterioration of the following system(s) required my full and direct attention, intervention and personal management. The time I documented below is in addition to time spent performing reported procedures but includes the following listed in this critical care notation. Medical Decision Making - Medical Records Medical records reviewed: Yes: I reviewed the patient's medical records. - Kavon Inquiry Pt receiving controlled substance: No Vital Signs: 12/29/20 13:43 Temperature 98 F Temperature Source Oral Pulse Rate [Radial] 90 Respiratory Rate 16 Blood Pressure [Right Arm] 134/80 Blood Pressure Mean [Right Arm] 98 Blood Pressure Position [Right Arm] Sitting 02 Sat by Pulse Oximetry 98 Oxygen Delivery Method Room Air - Lab Data Lab results reviewed: Yes: I reviewed the patient's lab results. Lab Results 12/29/20 13:52: POC Glucose 113 H - ECG Data Tracing #1 I reviewed this ECG and interpreted as documented below: His ECG was done at 1413. It shows a sinus rhythm with a ventricular rate at 66 bpm. There is some significant sinus arrhythmia. There is no evidence of preexcitation or ischemia. The axes are normal. Normal Sinus Rhythm: Yes Medical Decision Narrative: The patient presented to the emergency department today complaining of weakness, shakiness, nervousness, a fast heart rate, and restlessness. He states that he has had similar symptoms in the past and has been worked up for these but no one can figure out what it is. The symptoms resolved by the time the patient arrived in the emergency department. He still appears somewhat anxious. Physical examination is normal. The patient's blood glucose was also normal. An ECG was performed and shows no evidence of dysrhythmias and or preexcitation. I suspect that the patient's symptoms are secondary to anxiety disorder. I recommended to the patient that he follow-up with a primary care physician to discuss the possibility of anxiety. The patient's work-up in the emergency department did not reveal any life-threatening or dangerous causes for the patient's symptoms. The patient can be safely discharged home. Anxiety HPI - General Chief Complaint: Anxiety Stated Complaint: jittery, weakness Time Seen by Provider: 12/29/20 13:59 Mode of Arrival: Ambulatory Source of Information: Patient - History of Present Illness HPI narrative: Presents to the emergency department complaining of feeling shaky and weak and sweaty. He states that his heart was beating very fast. He ate something but did not improve. Therefore he came to the emergency department for evaluation. He states that he has had similar episodes for the last year. He has been seen for this and a cardiac work-up has been negative. He denies any drug use. MD complaint: anxiety - Related Data Home Medications: Previous Rx's Medication Instructions Recorded amoxicillin 500 mg capsule 1,000 mg PO BID 14 Days #56 cap 07/08/20 clarithromycin 500 mg tablet 500 mg PO BID 14 Days #28 tab 07/08/20 lansoprazole 30 mg capsule,delayed 30 mg PO BID 14 Days #28 cap 07/08/20 release Allergies/Adverse Reactions: Allergies Allergy/AdvReac Type Severity Reaction Status Date / Time No Known Allergies Allergy Verified 07/17/20 13:32 [facility] History - Hepatitis A Screen Drug use history?: No Attestation statement:: This patient has been screened for Hepatitis A
[2020-12-29 14:01] LABS: POC Glucose,Bedside 113 (70-110)
--- NOTE | 2020-12-29 14:05 | PC.NURSE ---
ACCUCHECK 113
--- NOTE | 2020-12-29 14:13 | ECG_ITS ---
APPROVED REPORT Exam: Resting ECG HR:66 bpm ECG Measurements Heart Rate 66 AXES AZ 150 P 70 QRSd 114 QRS 89 QT 378 T 71 QTc 396 Conclusion Sinus rhythm with marked sinus arrhythmia Otherwise normal ECG Electronically signed by : Kamran Shine MD 12/31/2020 21:06:50
[2020-12-29 14:29] VITALS: BP 122/65; PULSE 78; RESP 16; TEMP 36.6; O2SAT 98
== END 2020-12-29 14:31 | disposition home or self-care (01) ==
PROVIDERS: Emergency Provider Emergency Medicine
DX: F41.9 Anxiety disorder, unspecified (principal); R53.1 Weakness; R00.2 Palpitations
CPT/HCPCS: 82962; 93005; 99282

== ENCOUNTER → 2021-01-01 11:59 | Outpatient (CLI) | payer OTHER, SELFPAY | PROVIDERS: Visit Provider Surgery | DX: A04.8 Other specified bacterial intestinal infections (principal) | CPT/HCPCS: 87338 ==

== ENCOUNTER → 2021-06-05 17:05 | Outpatient (CLI) | payer OTHER, SELFPAY | PROVIDERS: Visit Provider Nurse Practitioner | DX: U07.1 COVID-19 (principal) | CPT/HCPCS: C9803; U0003; U0005 ==

== ENCOUNTER → 2021-12-23 13:06 | Outpatient (CLI) | payer BC, SELFPAY ==
[2021-12-24 20:09] LABS: Neisseria gonorrhoeae, NAA Negative (Negative)
== END ==
PROVIDERS: PCP Internal Medicine Adolescent Medicine; Visit Provider Internal Medicine Adolescent Medicine
DX: R30.0 Dysuria (principal)
CPT/HCPCS: 87491; 87591

== ENCOUNTER 2021-12-27 14:22 | Emergency (ER) | payer BC, SELFPAY ==
[2021-12-27 14:55] VITALS: BP 126/71; PULSE 61; RESP 19; TEMP 36.7; O2SAT 100; BMI 22.6
--- NOTE | 2021-12-27 15:29 | HMH.EDUTC ---
[facility] [place] Clinical Impression: Allergic rhinitis Qualifiers: Allergic rhinitis trigger: other Allergic rhinitis seasonality: seasonal Qualified Code(s): J30.89 - Other allergic rhinitis Disposition: Home, Self-Care Condition on Discharge: Good Instructions: DI for Allergic Rhinitis Additional Instructions: follow up with pcp return if symptoms worsen or do not improve Prescriptions: predniSONE [Prednisone 20mg Tab] 20 mg PO BID #10 tab Prescription Printed Referrals: Brando Almanzar MD [Primary Care Provider] - Time of Disposition: 16:26 Medical Decision Making - Kavon Inquiry Pt receiving controlled substance: No Vital Signs: 12/27/21 14:55 12/27/21 15:44 Temperature 98.1 F 98.1 F Temperature Source Oral Pulse Rate 61 Pulse Rate [Left Brachial] 61 Respiratory Rate 19 19 Blood Pressure 126/71 Blood Pressure [Left Arm] 126/71 Blood Pressure Mean [Left Arm] 89 Blood Pressure Source [Left Arm] Automatic Cuff Blood Pressure Position [Left Arm] Sitting 02 Sat by Pulse Oximetry 100 Oxygen Delivery Method Room Air [facility] [place] HPI - General Chief complaint: Urgent [facility] Stated complaint: pneumonia test Time Seen by Provider: 12/27/21 15:30 Mode of Arrival: Ambulatory Source of Information: Patient Limitations: No Limitations Description of Symptoms (Recalled from Triage Doc. by RN): PATIENT STATES HE TESTED POSITIVE FOR COVID ON 12/03/21 AND REPORTS STILL FEELING BAD. HE STATES HE WANTS TO MAKE SURE HE DOESN'T HAVE PNEUMONIA HEENT Symptoms (Recalled from RN notes): No Resp Symptoms (Recalled from RN notes): Yes Skin Symptoms (Recalled from RN notes): No MS Symptoms (Recalled from RN notes): No Functional Status (Recalled from RN notes): WNL - History of Present Illness Provider Complaint: 26 yr old male presents for cough. pt states he teted positive on 12/03/21 for covid and still having cough, clear nasal congestion and ears feel full. pt states he would like to make sure he does not have pneumonia - Related Data Previous Rx's Medication Instructions Recorded amoxicillin 500 mg capsule 1,000 mg PO BID 14 Days #56 cap 07/08/20 clarithromycin 500 mg tablet 500 mg PO BID 14 Days #28 tab 07/08/20 lansoprazole 30 mg capsule,delayed 30 mg PO BID 14 Days #28 cap 07/08/20 release predniSONE [Prednisone 20mg 20 mg PO BID #10 tab 12/27/21 Tab] Allergies Allergy/AdvReac Type Severity Reaction Status Date / Time No Known Allergies Allergy Verified 07/17/20 13:32 - Worker's Comp Is this a Worker's Comp case?: No [facility] History - Hepatitis A Screen Attestation statement:: This patient has been screened for Hepatitis A risk factors. I have reviewed the patient's past medical history: Yes Medical History: Reports:: Palpitations Denies:: Cancer, Diabetes Mellitus Type 1, Diabetes Mellitus Type 2, Internal Pacemaker, MRSA, Seizures Laterality Cases: Bilateral: Myringotomy (Ear Tubes) Other Surgeries: Yes: No Previous Surgery, EGD. No: Pacemaker Amputation: No Fractures: No - Social History Smoking Status: Never smoker Alcohol Intake: never Substance Use Type: denies use Occupational Status: other Housing: house Household Members: family Family Hx:: Coronary Artery Disease, Diabetes, Heart Attack, Hyperlipidemia, Hypertension Comment: Father- of [place]@42 ROS Obtained: Yes Systems reviewed as appropriate & no additional complaints - Constitutional Constitutional: Reports system reviewed and no additional complaints, except as docu, Reports fatigue, Denies fever(s) - Eyes Eyes: Reports system reviewed and no additional complaints, except as docu, Denies dry eyes - ENT Ears, Nose, Mouth, and Throat: Reports system reviewed and no additional complaints, except as docu, Denies poor balance - Cardiovascular Cardiovascular: Reports system reviewed and no additional complaints, except as docu, Denies chest pain - Respiratory Respiratory: Reports s
--- NOTE | 2021-12-27 15:32 | XR_ITS ---
PROCEDURE INFORMATION: Exam: XR Chest Exam date and time: 12/27/2021 3:46 PM Age: 26 years old Clinical indication: Cough and shortness of breath TECHNIQUE: Imaging protocol: Radiologic exam of the chest. Views: 2 views. COMPARISON: CR XR CHEST 2V 03/12/2020 11:22 PM FINDINGS: Lungs: Granulomatous densities noted within the right lung. Bilateral hyperinflation is present. No focal pneumonia or pneumothorax. Pleural spaces: There are no pleural effusions present. Heart/Mediastinum: Unremarkable. No cardiomegaly. Bones/joints: Unremarkable. IMPRESSION: 1. Bilateral hyperinflation is present. 2. No focal pneumonia or pneumothorax.
[2021-12-27 15:44] VITALS: BP 126/71; PULSE 61; RESP 19; TEMP 36.7; O2SAT 100
== END 2021-12-27 16:34 | disposition home or self-care (01) ==
LOC: ER 14:24 → UTC 14:26
PROVIDERS: Emergency Provider Nurse Practitioner Family; PCP Internal Medicine Adolescent Medicine
DX: J30.89 Other allergic rhinitis (principal); R00.2 Palpitations; R53.82 Chronic fatigue, unspecified; Z20.822 Contact with and (suspected) exposure to COVID-19; Z79.52 Long term (current) use of systemic steroids; Z82.49 Family history of ischemic heart disease and other diseases of the circulatory system; Z83.3 Family history of diabetes mellitus; Z83.438 Family history of other disorder of lipoprotein metabolism and other lipidemia
CPT/HCPCS: 71046; 99213; G0463

== ENCOUNTER → 2022-03-13 14:20 | Outpatient (CLI) | payer BC, SELFPAY | PROVIDERS: PCP Nurse Practitioner Family; Visit Provider Nurse Practitioner Family | DX: J02.9 Acute pharyngitis, unspecified (principal) | CPT/HCPCS: 87070; 87252 ==

== ENCOUNTER → 2022-05-19 13:40 | Outpatient (CLI) | payer BC, SELFPAY | PROVIDERS: PCP Nurse Practitioner Family; Visit Provider Nurse Practitioner Family | DX: J02.9 Acute pharyngitis, unspecified (principal) | CPT/HCPCS: 87070 ==

== ENCOUNTER → 2022-10-05 17:12 | Outpatient (CLI) | payer BC, SELFPAY ==
[2022-10-09 11:05] LABS: Neisseria gonorrhoeae, NAA Negative (Negative)
== END ==
PROVIDERS: PCP Family Medicine; Visit Provider Family Medicine
DX: R10.9 Unspecified abdominal pain (principal)
CPT/HCPCS: 87491; 87591